=== PATIENT | female | born 1985 ===

== ENCOUNTER 2020-09-21 22:34 | Emergency (ER) | payer SELFPAY ==
[2020-09-22 00:43] LABS: Basophils # (Auto) 0.1 K/mm3 (0.0-0.1); Basophils % (Auto) 0.6 % (0.0-1.8); Eosinophils # (Auto) 0.2 K/mm3 (0.0-0.4); Eosinophils % (Auto) 0.9 % (0.0-4.3); Hematocrit 36.8 % (30.3-42.9); Hemoglobin 12.6 gm/dl (10.1-14.3); Lymphocytes # (Auto) 1.7 K/mm3 (1.2-5.4); Lymphocytes % (Auto) 9.3 % (13.4-35.0); Mean Corpuscular HGB Conc 34 % (30-34); Mean Corpuscular Volume 88 fl (79-97); Monocytes # (Auto) 0.8 K/mm3 (0.0-0.8); Monocytes % (Auto) 4.4 % (0.0-7.3); Platelet Count 235 K/mm3 (140-440); Red Cell Distribution Width 13.8 % (13.2-15.2)
[2020-09-22 01:03] LABS: BUN/Creatinine Ratio 21; Blood Urea Nitrogen 15 mg/dL (7-17); Hemolysis Index 2
[2020-09-22] MEDS ORDERED: ONDANSETRON 4 MG/2 ML INJ IV ONE (01:21)
[2020-09-22] MEDS ORDERED: TETANUS,DIPHTHERIA TOXOID ADULT 0.5 ML INJ IM ONE (01:21)
[2020-09-22] MEDS ORDERED: MORPHINE 2 MG/1 ML INJ IV ONE (01:21)
--- NOTE | 2020-09-22 01:54 | Emergency Department Report ---
ED Dizziness HPI - General Chief Complaint: Dizziness Stated Complaint: LACERATION TO LEFT LEG,CONTUSION ON BACK OF HEAD Time Seen by Provider: 09/22/20 01:18 Source: patient Mode of arrival: Ambulatory Limitations: Language Barrier - History of Present Illness Initial Comments: 35-year-old female presents the emergency department after a fall from 9-10 stairs. Patient is here with a family member. Patient reports that she did have a beer on tonight. She felt dizzy prior to her fall and then fell approximately 9-10 steps down concrete stairs. She injured her head, her left leg. She states last tetanus was 8 years ago, she is not on any blood thinners or anticoagulants. She denies history of any serious medical problems. - Related Data Allergies Allergy/AdvReac Type Severity Reaction Status Date / Time No Known Allergies Allergy Verified 09/22/20 01:28 ED Review of Systems ROS: Stated complaint: LACERATION TO LEFT LEG,CONTUSION ON BACK OF HEAD Other details as noted in HPI Constitutional: denies: chills, fever Eyes: denies: eye discharge ENT: denies: dental pain Respiratory: denies: shortness of breath Cardiovascular: denies: chest pain Gastrointestinal: nausea. denies: abdominal pain, vomiting Genitourinary: denies: frequency Musculoskeletal: denies: joint swelling Skin: denies: rash Neurological: headache. denies: weakness Psychiatric: denies: anxiety Hematological/Lymphatic: as per HPI ED Past Medical Hx - Past Medical History Previous Medical History?: No - Surgical History Past Surgical History?: No - Social History Smoking Status: Never Smoker Substance Use Type: None ED Physical Exam - General Limitations: Language Barrier General appearance: alert - Head Head exam: Present: other (Posterior scalp hematoma and laceration approximately 2.5 cm to the posterior scalp) - Eye Eye exam: Present: normal appearance Pupils: Present: normal accommodation - ENT ENT exam: Present: normal exam - Neck Neck exam: Present: tenderness (Midline) - Respiratory Respiratory exam: Present: normal lung sounds bilaterally. Absent: respiratory distress, wheezes, rales - Cardiovascular Cardiovascular Exam: Present: regular rate, normal rhythm, normal heart sounds - GI/Abdominal GI/Abdominal exam: Present: soft. Absent: distended, tenderness - Rectal Rectal exam: Present: deferred - Expanded Lower Extremity Exam Left Hip exam: Present: tenderness (Right hip) Lower Leg exam: Present: tenderness, laceration (Laceration right below the left knee which has tendon visible) - Back Exam Back exam: Present: other (Patient has bruising to the lower back and right buttocks no T or L-spine tenderness but does have sacral tenderness) - Neurological Exam Neurological exam: Present: alert, other (Oriented to self and situation, disoriented to year) - Psychiatric Psychiatric exam: Present: normal mood - Skin Skin exam: Present: warm, dry ED Course Vital Signs 09/21/20 09/22/20 09/22/20 23:55 01:08 01:53 Temperature 98.3 F 98 F Pulse Rate 97 H 83 Respiratory 16 16 19 Rate Blood Pressure 142/73 Blood Pressure 122/83 [Left] O2 Sat by Pulse 99 100 Oximetry 09/22/20 09/22/20 09/22/20 02:01 02:15 02:23 Temperature Pulse Rate 80 82 Respiratory 26 H 22 16 Rate Blood Pressure 124/77 124/77 Blood Pressure [Left] O2 Sat by Pulse 97 98 Oximetry 09/22/20 02:31 Temperature Pulse Rate 78 Respiratory 20 Rate Blood Pressure 123/83 Blood Pressure [Left] O2 Sat by Pulse 98 Oximetry - Reevaluation(s) Reevaluation #1: 09/22/20 01:40 Discussed with patient and family member in the room patient CT scan and need for transfer to [place]. - Laceration /Wound Repair Head Wound Length (cm): 2 Wound's Depth, Shape: linear Wound Explored: clean Irrigated w/ Saline (ccs): 50 Anesthesia: 1% Lidocaine Wound Debrided: none Number of Sutures: 3 Sterile Dressing Applied?: Yes Progress: Repaired with 3 rosa. ED Medical Decision Making - Lab Data Result diagrams: 09/22/20 00:24 09/22/20 00:24 - EKG Data -: EKG Interpreted by Md EKG shows normal: sinus rhythm Rate: normal - EKG Data Interpretation: normal EKG - Medical Decision Making 35-year-old female who presents to the emergency department after becoming dizzy and falling down 9-10 stairs although her dizziness did happen prior to her fall she had CT imaging that was done in triage that radiology has called prior to patient making her way to the main emergency department and his CT is notable for subarachnoid hemorrhage. It appears traumatic in nature and does not appear to be secondary to an aneurysm. Patient also has a right posterior scalp laceration that will be repaired and a left lower extremity laceration that may require orthopedic evaluation. Chest and pelvis images have not been read by radiology but on my read did not appear to show an acute fracture although she does have tenderness at the right hip that makes her concerned that she may need a CT image of the abdomen and pelvis. Her CT head is notable for the subarachnoid hemorrhage and CT C-spine appears negative however patient has tenderness and is slightly altered with not knowing the year. Given this we will keep in a cervical collar. I have spoken to [facility] and they have accepted patient as a level 2 trauma transfer. Critical care attestation.: If time is entered above; I have spent that time in minutes in the direct care of this critically ill patient, excluding procedure time. ED Disposition Clinical Impression: SAH (subarachnoid hemorrhage) Disposition: [id number]/TX-[id number] ANOTHER TYPE HLTHCARE Is pt being admited?: No Does the pt Need Aspirin: No Condition: Fair Referrals: PRIMARY CAREMD [Primary Care Provider] - 3-5 Days Time of Disposition: 02:40
[2020-09-22] MEDS ORDERED: LIDOCAINE-MPF (1%) 10 MG/1 ML VIAL 5 ML INFILTRATI ONE (02:13)
[2020-09-22] MEDS ORDERED: SODIUM CHLORIDE 0.9% IRR 500 ML BOTTLE IR ONE (02:17)
[2020-09-22 02:35] VITALS: BP 123/83
--- NOTE | 2020-09-24 17:41 | Electrocardiograph Report ---
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
== END 2020-09-22 02:52 | disposition other institution (70) ==
LOC: ED 22:34
DX: S81.812A Laceration without foreign body, left lower leg, initial encounter (principal); I60.9 Nontraumatic subarachnoid hemorrhage, unspecified; W10.9XXA Fall (on) (from) unspecified stairs and steps, initial encounter; Y93.89 Activity, other specified; Y92.89 Other specified places as the place of occurrence of the external cause; Y99.8 Other external cause status
CPT/HCPCS: 12001; 36415; 70450; 71045; 72125; 72170; 73562; 80048; 84484; 85025; 85610; 90714; 93005; 96365; 96372; 96375; 99285; J0690; J2270; J2405